=== PATIENT | male | born 1960 | race Caucasian/White ===

== ENCOUNTER 2021-07-14 14:34 | Inpatient (IN) | payer MEDICARE, OTHER ==
[~2021-07-14] VITALS: Ht 165.1 cm; Wt 53.5 kg
--- NOTE | 2021-07-14 14:59 | NUR ---
DR LEON AT BEDSIDE FOR EVAL.
[2021-07-14] MEDS ORDERED: PRAM0.258 GT (15:27)
[2021-07-14] MEDS ORDERED: ACET-868 GT (15:27)
[2021-07-14] MEDS ORDERED: PARO20TA7 GT (15:27)
[2021-07-14] MEDS ORDERED: ALPR0.255 GT (15:27)
[2021-07-14] MEDS ORDERED: GABA-532 GT (15:27)
[2021-07-14] MEDS ORDERED: CRAN3875 GT (15:27)
[2021-07-14] MEDS ORDERED: CLOZ100T32 GT (15:27)
[2021-07-14] MEDS ORDERED: IPRA4AER INH (15:27)
[2021-07-14] MEDS ORDERED: DOCU50LI GT (15:27)
[2021-07-14] MEDS ORDERED: ATOR40TA GT (15:27)
[2021-07-14] MEDS ORDERED: ACET-2605 GT (15:27)
[2021-07-14] MEDS ORDERED: CRAN425C6 GT (15:27)
[2021-07-14] MEDS ORDERED: DOXA4TAB19 GT (15:27)
[2021-07-14] MEDS ORDERED: MAGN400O6 GT (15:27)
[2021-07-14] MEDS ORDERED: HYDR-3973 GT (15:27)
[2021-07-14] MEDS ORDERED: MULT-447 GT (15:27)
[2021-07-14] MEDS ORDERED: BENZ0.5T43 GT (15:27)
[2021-07-14] MEDS ORDERED: CALC500T52 GT (15:27)
[2021-07-14] MEDS ORDERED: ENOX40DI SQ (15:27)
[2021-07-14] MEDS ORDERED: FINA5TAB11 GT (15:27)
[2021-07-14] MEDS ORDERED: CARB1TAB21 GT (15:27)
[2021-07-14] MEDS ORDERED: NITR0.4T48 SL (15:27)
[2021-07-14] MEDS ORDERED: DONE10TA44 GT (15:27)
[2021-07-14] MEDS ORDERED: VANCOMYCIN 1 GM in IV D5W 250 ML IV ONE (15:30)
[2021-07-14] MEDS ORDERED: DEXAMETHASONE SOD PHOSPHATE 4 MG in IV D5W 50 ML IV ONE (15:30)
[2021-07-14] MEDS ORDERED: DEXAMETHASONE SOD PHOSPHATE 4 MG/ML VIAL IV ONE (15:30)
[2021-07-14] MEDS ORDERED: PIPERACILLIN /TAZOBACTAM 3.375 G in IV D5W 50 ML IV ONE (15:30)
[2021-07-14 15:32] LABS: ABG BASE EXCESS -1.8 mmol/L; ABG OXYGEN SATURATION 90.3 % (92.0-98.5); ABG PCO2 34.4 mmHg (35.0-45.0); ABG PH 7.424 (7.350-7.450); ABG PO2 60.7 mmHg (75.0-100.0); AaDO2 617.9 mmHg; COHb 0.2 % (0.5-1.5); MetHb 0.4 % (0.0-1.5); O2Hb 89.8 % (94.0-97.0); SITE, ABG Right Radial; VENT MODE, BG NRB AT 15 LPM
[2021-07-14 15:40] LABS: BASOPHILS % (AUTO) 0.3 % (0.0-2.0); EOSINOPHILS % (AUTO) 0.1 % (0.0-6.0); HEMATOCRIT 42 % (39-51); HEMOGLOBIN 13.8 g/dL (13.5-17.5); LYMPHOCYTES # (AUTO) 1.3 K/uL (0.8-4.8); LYMPHOCYTES % (AUTO) 11.7 % (20.0-44.0); MEAN CORPUSCULAR HGB CONC 33 g/dl (31.0-36.0); MEAN CORPUSCULAR VOLUME 94 fL (80-96); MONOCYTES # (AUTO) 0.8 K/uL (0.1-1.30); NEUTROPHILS # (AUTO) 9.2 K/uL (1.8-8.9); NEUTROPHILS % (AUTO) 80.9 % (43.0-81.0); PLATELET COUNT (AUTO) 223 K/uL (150-450); RED BLOOD CELL COUNT(AUTO) 4.49 MIL/uL (4.5-6.0); WHITE BLOOD COUNT (AUTO) 11.4 K/uL (4.3-11.0)
--- NOTE | 2021-07-14 15:41 | NUR ---
COVID SWABS DONE AND SENT TO LAB
[2021-07-14] MEDS ORDERED: DEXAMETHASONE SOD PHOSPHATE 10 MG/ML VIAL ONE (15:50)
--- NOTE | 2021-07-14 15:59 | NUR ---
PT TO RADIOLOGY FOR HEAD CT SCAN VIA [facility].
[2021-07-14 16:05] LABS: CALCIUM, SERUM 8.6 mg/dL (8.5-10.1); CARBON DIOXIDE 27 mmol/L (21-32); CHLORIDE 104 mmol/L (98-107); CREATININE 0.9 mg/dL (0.6-1.3); GLUCOSE 112 mg/dL (74-106); POTASSIUM 3.9 mmol/L (3.5-5.1); SODIUM SERUM 139 mmol/L (136-145); UREA NITROGEN, BLOOD 10 mg/dL (7-18)
[2021-07-14 16:18] LABS: ALANINE AMINOTRANSFERASE < 6 U/L (12-78); ALKALINE PHOSPHATASE 55 U/L (46-116); ASPARTATE AMINOTRANSFERASE 15 U/L (15-37); BILIRUBIN,DIRECT 0.1 mg/dL (0.0-0.2); BILIRUBIN,TOTAL 0.6 mg/dL (0.2-1.0); TOTAL PROTEIN, SERUM 7.1 g/dL (6.4-8.2)
[2021-07-14 16:54] LABS: BAND % (MANUAL) 30 % (0.0-5.0); LYMPHOCYTES % (MANUAL) 11 % (16-48); MONOCYTES % (MANUAL) 12 % (0-11.0); NEUTROPHILS % (MANUAL) 47 (42-76)
[2021-07-14] MEDS ORDERED: IOHEXOL-350 100 ML VIAL IV ONE (17:17)
[2021-07-14] MEDS ORDERED: IV NS 0.9% 250 ML IV ONE (17:17)
[2021-07-14] MEDS ORDERED: ACETAMINOPHEN 650 MG/SUPP.RECT RC ONE ×2 (17:30→18:29)
--- NOTE | 2021-07-14 17:35 | NUR ---
NURSING SUP GAVE 118-1 TELE.
[2021-07-14 17:36] LABS: BILIRUBIN,URINE NEGATIVE (NEGATIVE); COLOR,URINE YELLOW (YELLOW); LEUKOCYTE ESTERASE ,URINE NEGATIVE (NEGATIVE); NITRITE, URINE NEGATIVE (NEGATIVE); PH,URINE 6.5 (5.0-8.0); PROTEIN,URINE NEGATIVE (NEGATIVE); UGLUCOSE NEGATIVE (NEGATIVE); UROBILINOGEN,URINE 0.2 EU/dL (0.2)
--- NOTE | 2021-07-14 18:15 | NUR ---
REPORT GIVEN TO YASMIN HUBER. AWAITING TRANSFER TO FLOOR.
--- NOTE | 2021-07-14 18:40 | NUR ---
RN NOTE RECEIVED PATIENT FROM ER. WILL CONTINUE TO MONITOR FOR REMAINDER OF SHIFT.
[2021-07-14 18:50] VITALS: BP 103/59
[2021-07-14] MEDS ORDERED: MAGNESIUM HYDROXIDE 30 ML UDC GT PRN (19:30)
[2021-07-14] MEDS ORDERED: ACETAMINOPHEN 325 MG TABLET PO PRN (19:30)
[2021-07-14] MEDS: ALBUTEROL HALF STRENGTH 1.25 MG/3 ML VIAL.NEB NEB SCH (19:30)
[2021-07-14] MEDS ORDERED: HYDROCODONE/APAP 5/325MG TABLET GT PRN (19:30)
[2021-07-14] MEDS ORDERED: Medication Not On Formulary EA (Ipratropium/Albuterol Sulfate (Combivent Respimat 20-100 INH PRN (19:30)
[2021-07-14] MEDS ORDERED: NITROGLYCERIN 0.4 MG/TAB BOTTLE SL PRN (19:30)
[2021-07-14] MEDS: IPRATROPIUM NEB FS 0.5 MG/2.5 ML AMPUL.NEB NEB SCH (19:30)
--- NOTE | 2021-07-14 19:30 | NUR ---
RN NOTES RECEIVED PT FROM AM SHIFT FOR ONGOING ADMISSION. PT IS A/OX1-2; PT ON 15L OF 02 VIA NRB MASK WITH RESPIRATIONS EVEN AND UNLABORED. COMPREHENSIVE PHYSICAL ASSESSMENT AND PATIENT CARE DONE. CALL LIGHT WITHIN REACH, SAFETY MEASURES AND ISOLATION PRECAUTION IN PLACE, WILL CONTINUE MONITOR AND ASSESS THROUGHOUT THE SHIFT. WILL CARRY OUT MD ORDERS ACCORDINGLY. DISTRIBUTION ASSOCIATE MADE AWARE.
[2021-07-14 20:00] VITALS: BP 109/60
[2021-07-14] MEDS ORDERED: ACETAMINOPHEN ES 500 MG TABLET GT PRN ×2 (20:00)
[2021-07-14] MEDS ORDERED: IPRATROPIUM NEB FS 0.5 MG/2.5 ML AMPUL.NEB NEB PRN (20:00)
[2021-07-14] MEDS ORDERED: ALBUTEROL FS 2.5 MG/0.5 ML VIAL.NEB NEB PRN (20:00)
--- NOTE | 2021-07-14 20:45 | NUR ---
BREATHING TX NOT GIVEN DUE TO PENDING COVID TEST RESULT. RN DAT AWARE. SPO2 100% , HR 57, RR 20.
[2021-07-14] MEDS: CARBIDOPA/LEVODOPA 25/100 MG 1 UDTAB GT SCH (21:47)
[2021-07-14] MEDS: DOXAZOSIN MESYLATE (4 MG) 4 MG TABLET GT SCH (21:48)
--- NOTE | 2021-07-14 21:49 | NUR ---
RN NOTES HELD DOXAZOSIN; PT'S BP: 109/60. DRIVERS' CASH CLERK MADE AWARE. MEDICATION RETURNED IN OMNICELL.
[2021-07-14] MEDS: DOCUSATE SODIUM LIQ 100 MG/10 ML UDC GT SCH (21:50)
[2021-07-14] MEDS: ATORVASTATIN 40 MG TABLET GT SCH (21:50)
[2021-07-14] MEDS: CLOZAPINE 100 MG TABLET GT SCH (21:50)
[2021-07-14] MEDS: PRAMIPEXOLE DI-HCL 0.25 MG TABLET GT SCH (21:50)
[2021-07-14] MEDS: GABAPENTIN 100 MG CAPSULE GT SCH (21:51)
[2021-07-14] MEDS: CALCIUM CARBONATE (1250) 500 MG TABLET GT SCH (21:51)
[2021-07-14] MEDS: FINASTERIDE (5 MG) 5 MG TABLET GT SCH (21:51)
[2021-07-14] MEDS: ZOSYN IVPB 3.375 G in IV D5W 50ml IV SCH (21:52)
[2021-07-15] VITALS: BP 109/61
--- NOTE | 2021-07-15 | NUR ---
RN NOTES PATIENT REMAINED TO BE IN NO SIGNS OF ACUTE RESPIRATORY DISTRESS , VITAL SIGNS WNL AT THIS TIME. WILL CONTINUE TO MONITOR AND REASSESS FOR ANY CHANGES THROUGHOUT THE SHIFT.
[2021-07-15] MEDS: ALBUTEROL HALF STRENGTH 1.25 MG/3 ML VIAL.NEB NEB SCH ×4 (01:30→19:30)
[2021-07-15] MEDS: IPRATROPIUM NEB FS 0.5 MG/2.5 ML AMPUL.NEB NEB SCH ×4 (01:30→19:30)
[2021-07-15] MEDS: ZOSYN IVPB 3.375 G in IV D5W 50ml IV SCH ×4 (03:21→22:34)
[2021-07-15 04:00] VITALS: BP 136/58
--- NOTE | 2021-07-15 04:00 | NUR ---
RN NOTES NO NOTED CHANGES IN PATIENT CONDITION AT THIS TIME; PATIENT VITALS STABLE, NO SIGNS OF ACUTE RESPIRATORY DISTRESS. AM PATIENT CARE RENDERED. DRIVER'S LICENSE EXAMINER MADE AWARE. WILL CONTINUE TO MONITOR AND REASSESS FOR ANY CHANGES THROUGHOUT THE SHIFT.
[2021-07-15] MEDS: VANCOMYCIN 1 GM in IV D5W 250 ML IV SCH ×2 (04:03→16:34)
[2021-07-15 06:41] LABS: CALCIUM, SERUM 9.1 mg/dL (8.5-10.1); CREATININE 0.8 mg/dL (0.6-1.3); POTASSIUM 3.7 mmol/L (3.5-5.1)
[2021-07-15 06:49] LABS: HEMATOCRIT 42 % (39-51); HEMOGLOBIN 14.1 g/dL (13.5-17.5); LYMPHOCYTES # (AUTO) 0.9 K/uL (0.8-4.8); MEAN CORPUSCULAR HGB CONC 33 g/dl (31.0-36.0); MEAN CORPUSCULAR VOLUME 93 fL (80-96); MONOCYTES # (AUTO) 0.6 K/uL (0.1-1.30); MONOCYTES % (AUTO) 5.4 % (2.0-12.0); NEUTROPHILS % (AUTO) 86.6 % (43.0-81.0); PLATELET COUNT (AUTO) 230 K/uL (150-450); RED BLOOD CELL COUNT(AUTO) 4.54 MIL/uL (4.5-6.0); WHITE BLOOD COUNT (AUTO) 11.6 K/uL (4.3-11.0)
--- NOTE | 2021-07-15 06:54 | NUR ---
RN CLOSING NOTE: PATIENT REMAINS IN ROOM IN NO SIGNS OF RESPIRATORY DISTRESS, PATIENT STILL ON15L OF 02 VIA NRB MASKS ;TOLERATING WELL SATURATING @ >95% SP02. SAFETY MEASURES IMPLEMENTED, BED IN LOWEST POSITION, LOCKED, SIDE RAILS UP, CALL LIGHT WITHIN REACH. ALL NEEDS AND ORDERS ADDRESSED DURING THE SHIFT. IV ACCESS MAINTAINED INTACT, SECURED AND FLUSHING WELL. ALL DUE MEDS GIVEN ORDERED & SCHEDULED ; PATIENT TOLERATED WELL. PATIENT KEPT CLEAN AND COMFORTABLE WITHIN THE SHIFT. PATIENT ENDORSED TO INCOMING SHIFT RN WITH STABLE VITAL SIGN AND FOR CONTINUITY OF CARE. Addendum: 07/15/21 at 0656 by SIMIN HELM RN ALSO TO ENDORSE TO AM SHIFT RN TO FOLLOW UP WITH APPROPRIATE DIET FOR PT; PER [facility] RECORDS PT IS ON MECHANICAL SOFT DIET HONEY CONSISTENCY. ALSO ABOUT CODE STATUS. THERES A CODE STATUS SHEET FOR DNR; FOLLOW UP WITH MD TO PLACE CODE STATUS.
[2021-07-15 08:00] VITALS: BP 110/88
[2021-07-15] MEDS: ALPRAZOLAM 0.25 MG TABLET GT SCH ×2 (08:17→17:22)
[2021-07-15] MEDS: CARBIDOPA/LEVODOPA 25/100 MG 1 UDTAB GT SCH ×4 (08:18→22:34)
[2021-07-15] MEDS: MULTIVIT W/MINERALS 1 TAB TABLET GT SCH (08:18)
[2021-07-15] MEDS: ENOXAPARIN SODIUM 40 MG/0.4 ML DISP.SYRIN SQ SCH (08:19)
[2021-07-15] MEDS: BENZTROPINE MESYLATE (1 MG) 1 MG TABLET GT SCH ×2 (08:20→16:34)
--- NOTE | 2021-07-15 09:13 | NUR ---
MS RN NOTE PATIENT ON MONITOR. HR 79 RR20. PATIENT ON SOFT DIET. FED BY NURSING STAFF. CONSULT GASOLINE CATALYST OPERATOR TO TITRATE TO SIMPLE MASK TO 6L. PT HAVE RIGHT AC IV. HEP LOCK AND FLUSH WELL. PT HAS BED ON LOWEST POSITION AND LOCK. CALL LIGHT WITHIN REACH. HEAD OF THE BED UP. CURRENTLY ON SIMPLE MASK ON 10L. WILL CONTINUE TO MONITOR. CALL LIGHT WITHIN REACH.
--- NOTE | 2021-07-15 09:29 | NUR ---
MS HUBER NOTE BLOOD TRANSFUSION COMPLETED. PATIENT SHOWS NO SIGN OF TRANSFUSION REACTION. Addendum: 07/15/21 at 1228 by RUI VILLALOBOS RN wrong chart, wring entry
[2021-07-15 12:00] VITALS: BP 99/56
--- NOTE | 2021-07-15 12:30 | NUR ---
DISEASE INTERVENTION SPECIALIST NOTE PATIENT HAVING LUNCH , ABLE TO EAT 50% FED BY RN , KEEP CLEAN DRY , ALL NEEDS ATTENDED ,WILL MONITOR
--- NOTE | 2021-07-15 14:30 | NUR ---
BINDER FOLDER OPERATOR NOTE ALESIA RN CCTV TECHNICIAN FOR DR. PARSONS SEEN PATIENT. PATIENT STATUS UPDATED DNR TO DNI. WILL FOLLOW UP.
--- NOTE | 2021-07-15 15:33 | NUR ---
CAUSE ANALYST NOTE SATURATION 99%, PLACED ON NC 6 L AT THIS TIME ,WILL MONITOR
[2021-07-15 16:00] VITALS: BP 125/66
[2021-07-15] MEDS: DONEPEZIL 5 MG TABLET GT SCH (17:22)
[2021-07-15] MEDS: PAROXETINE HCL 20 MG TABLET GT SCH (17:23)
[2021-07-15] MEDS ORDERED: Medication Not On Formulary EA (Cranberry Extract (Cranberry) 425 MG) GT SCH (18:00)
[2021-07-15] MEDS ORDERED: Medication Not On Formulary EA (Cran/Vitc/Mannose/Inulin/Brom (Uti-Stat Liquid) 3,875 MG GT SCH (18:00)
--- NOTE | 2021-07-15 18:33 | NUR ---
TELE NURSE NOTE. PATIENT WAS SWITCH FROM SIMPLE FACE MASK TO NASAL CANULA ON 4L OF OXYGEN. SATURATING AT 97%. PATIENT CLEANED BY COOK HELPER PASTRY. DINNER WAS FED BY COOK HELPER PASTRY. PROVIDE COMFORT MEASURE. BE WAS PUT TO THE LOWEST POSITION WITH HOB ELEVATED. ALL SIDE RAIL UP. WILL CONTINUE TO MONITOR AND ENDORSE TO ON COMING NURSE.
[2021-07-15 20:00] VITALS: BP 109/56
[2021-07-15] MEDS: DOXAZOSIN MESYLATE (4 MG) 4 MG TABLET GT SCH (22:00)
[2021-07-15] MEDS: PRAMIPEXOLE DI-HCL 0.25 MG TABLET GT SCH (22:26)
[2021-07-15] MEDS: GABAPENTIN 100 MG CAPSULE GT SCH (22:26)
[2021-07-15] MEDS: CALCIUM CARBONATE (1250) 500 MG TABLET GT SCH (22:29)
[2021-07-15] MEDS: FINASTERIDE (5 MG) 5 MG TABLET GT SCH (22:29)
[2021-07-15] MEDS: ATORVASTATIN 40 MG TABLET GT SCH (22:29)
[2021-07-15] MEDS: CLOZAPINE 100 MG TABLET GT SCH (22:30)
[2021-07-15] MEDS: DOCUSATE SODIUM LIQ 100 MG/10 ML UDC GT SCH (22:30)
[2021-07-16] VITALS: BP 108/57
[2021-07-16] MEDS: IPRATROPIUM NEB FS 0.5 MG/2.5 ML AMPUL.NEB NEB SCH ×4 (01:14→19:56)
[2021-07-16] MEDS: ALBUTEROL HALF STRENGTH 1.25 MG/3 ML VIAL.NEB NEB SCH ×4 (01:14→19:56)
[2021-07-16] MEDS: ZOSYN IVPB 3.375 G in IV D5W 50ml IV SCH ×4 (04:16→21:37)
[2021-07-16] MEDS: VANCOMYCIN 1 GM in IV D5W 250 ML IV SCH ×2 (04:17→16:53)
[2021-07-16 04:27] LABS: CALCIUM, SERUM 8.7 mg/dL (8.5-10.1); CREATININE 0.7 mg/dL (0.6-1.3); POTASSIUM 3.8 mmol/L (3.5-5.1)
--- NOTE | 2021-07-16 06:42 | NUR ---
RN notes Alert and oriented with episodes of forgetfulness. In bed resting comfortably. Noted with delayed speech. Very cooperative. On 4lpm O2 via nasal cannula tolerating well. No complaint of pain or discomfort. Kept clean and comfortable. Will endorse to next shift for continuity of care.
--- NOTE | 2021-07-16 07:10 | NUR ---
RN NOTES RECEIVED PT ON BED , A/Ox1, ON 4 L O2 N/C , NO SOB NOTED, ON TELE SR HR IN 70S' , R AC AND LEFT WRIST IV SITES CLEAN, DRY AND INTACT, SR UP x3, CALL LIGHT WITHIN EASY REACH , BED LOCKED AND IN LOWEST POSITION, CONTINUE TO MONITOR
[2021-07-16 08:00] VITALS: BP 123/58
[2021-07-16] MEDS: MULTIVIT W/MINERALS 1 TAB TABLET GT SCH (08:26)
[2021-07-16] MEDS: ALPRAZOLAM 0.25 MG TABLET GT SCH ×2 (08:26→17:02)
[2021-07-16] MEDS: CARBIDOPA/LEVODOPA 25/100 MG 1 UDTAB GT SCH ×4 (08:27→21:07)
[2021-07-16] MEDS: BENZTROPINE MESYLATE (1 MG) 1 MG TABLET GT SCH ×2 (08:27→16:49)
[2021-07-16] MEDS: ENOXAPARIN SODIUM 40 MG/0.4 ML DISP.SYRIN SQ SCH (08:28)
[2021-07-16 12:07] LABS: BASOPHILS # (AUTO) 0.1 K/uL (0.0-0.2); BASOPHILS % (AUTO) 0.5 % (0.0-2.0); EOSINOPHILS % (AUTO) 0.4 % (0.0-6.0); HEMATOCRIT 39 % (39-51); HEMOGLOBIN 12.7 g/dL (13.5-17.5); LYMPHOCYTES # (AUTO) 2.1 K/uL (0.8-4.8); LYMPHOCYTES % (AUTO) 16.9 % (20.0-44.0); MEAN CORPUSCULAR HGB CONC 32 g/dl (31.0-36.0); MEAN CORPUSCULAR VOLUME 95 fL (80-96); MONOCYTES # (AUTO) 0.9 K/uL (0.1-1.30); MONOCYTES % (AUTO) 7.1 % (2.0-12.0); NEUTROPHILS # (AUTO) 9.4 K/uL (1.8-8.9); NEUTROPHILS % (AUTO) 75.1 % (43.0-81.0); PLATELET COUNT (AUTO) 263 K/uL (150-450); RED BLOOD CELL COUNT(AUTO) 4.13 MIL/uL (4.5-6.0); WHITE BLOOD COUNT (AUTO) 12.5 K/uL (4.3-11.0)
[2021-07-16 12:52] LABS: BAND % (MANUAL) 5 % (0.0-5.0); LYMPHOCYTES % (MANUAL) 18 % (16-48); MONOCYTES % (MANUAL) 8 % (0-11.0); NEUTROPHILS % (MANUAL) 69 (42-76)
[2021-07-16 16:00] VITALS: BP 128/62
[2021-07-16] MEDS: DONEPEZIL 5 MG TABLET GT SCH (17:02)
[2021-07-16] MEDS: PAROXETINE HCL 20 MG TABLET GT SCH (17:04)
--- NOTE | 2021-07-16 18:00 | NUR ---
RN NOTES NO SIGNIFICANT CHANGES NOTED ON THIS SHIFT, PT IS ON 4L O2 N/C , O2 SAT WNL , SR UP x3, CALL LIGHT WITHIN EASY REACH, WILL ENDORSE TO RACE ENGINE BUILDER NURSE FOR CONTINUITY OF CARE.
--- NOTE | 2021-07-16 19:30 | NUR ---
MS RN OPENING PATIENT IN BED WITH EYES CLOSED, EASY TO AROUSE. HAS NO APPARENT DISTRESS TOLERATING 4LPM OF OXYGEN VIA NC. NO C/O PAIN. NO FLUIDS RUNNING AT THIS TIME. SAFETY IN PLACE. WILL CONTINUE TO MONITOR. .
[2021-07-16 20:00] VITALS: BP 132/73
[2021-07-16] MEDS: CLOZAPINE 100 MG TABLET GT SCH (21:41)
[2021-07-16] MEDS: FINASTERIDE (5 MG) 5 MG TABLET GT SCH (21:41)
[2021-07-16] MEDS: PRAMIPEXOLE DI-HCL 0.25 MG TABLET GT SCH (21:41)
[2021-07-16] MEDS: CALCIUM CARBONATE (1250) 500 MG TABLET GT SCH (21:42)
[2021-07-16] MEDS: ATORVASTATIN 40 MG TABLET GT SCH (21:42)
[2021-07-16] MEDS: DOXAZOSIN MESYLATE (4 MG) 4 MG TABLET GT SCH (21:44)
[2021-07-16] MEDS: GABAPENTIN 100 MG CAPSULE GT SCH (21:46)
[2021-07-16] MEDS: DOCUSATE SODIUM LIQ 100 MG/10 ML UDC GT SCH (21:48)
[2021-07-17] MEDS: IPRATROPIUM NEB FS 0.5 MG/2.5 ML AMPUL.NEB NEB SCH ×4 (01:55→20:00)
[2021-07-17] MEDS: ALBUTEROL HALF STRENGTH 1.25 MG/3 ML VIAL.NEB NEB SCH ×4 (01:55→20:00)
[2021-07-17] MEDS: ZOSYN IVPB 3.375 G in IV D5W 50ml IV SCH ×4 (03:01→21:19)
[2021-07-17] MEDS: VANCOMYCIN 1 GM in IV D5W 250 ML IV SCH ×2 (04:00→17:17)
--- NOTE | 2021-07-17 04:00 | NUR ---
ms rn note report given to michael.
--- NOTE | 2021-07-17 04:44 | NUR ---
ms rn note patient transferred upstairs 3w at this time in stable condition.
--- NOTE | 2021-07-17 04:55 | NUR ---
MS RN NOTES RECEIVED PATIENT FROM [facility] VIA GURNEY, AWAKE AND A/O X1. ON O2 AT 3LPM VIA NASAL CANNULA, TOLERATING WELL WITH NO SIGNS OF SOB NOTED. NOT IN DISTRESS. VITAL SIGNS TAKEN AND RECORDED. WITH NO PAIN OR DISCOMFORT AT THIS TIME. MADE COMFORTABLE ON BED. SAFETY MEASURES IN PLACED. CALL LIGHT WITHIN REACH. BED ON LOWEST AND LOCKED POSITION. SIDE RAILS UP X2. WILL CONTINUE TO MONITOR.
[2021-07-17 06:00] VITALS: BP 125/71
--- NOTE | 2021-07-17 06:42 | NUR ---
MS RN CLOSING NOTES PATIENT RESTING ON BED, AWAKE AND A/O X1. ON O2 AT 3LPM VIA NASAL CANNULA, TOLERATING WELL WITH NO SIGNS OF SOB NOTED. NOT IN DISTRESS. VITAL SIGNS TAKEN AND RECORDED. WITH NO PAIN OR DISCOMFORT AT THIS TIME. SAFETY MEASURES IN PLACED. CALL LIGHT WITHIN REACH. BED ON LOWEST AND LOCKED POSITION. SIDE RAILS UP X2. WILL ENDORSE TO NEXT SHIFT.
[2021-07-17 07:56] LABS: CREATININE 0.7 mg/dL (0.6-1.3); POTASSIUM 3.8 mmol/L (3.5-5.1)
[2021-07-17 08:00] VITALS: BP 124/67
--- NOTE | 2021-07-17 08:00 | NUR ---
RN NOTE NURSE SWALLOW EVAL DONE. PT ON SOFT DIET, MD AGREEABLE FOR DIET. WILL CONTINUE TO MONITOR.
--- NOTE | 2021-07-17 08:00 | NUR ---
RN OPENING NOTE PT AWAKE IN BED RESTING. ON 3L NC WITH SOB AND COUGHING PRESENT. NO RESPIRATORY DISTRESS. A/O X1-2 WITH NO S/S OF PAIN OR NAUSEA. NO CHIEF CLERK PRESENT. NO EDEMA PRESENT. BEDBOUND WITH DIAPER PRESENT. SKIN IS INTACT. IV PRESENT ON R AC 18 G AND L WRIST 20G. BOTH FLUSHING WELL AND SALINE LOCKED. LABS AND ORDERS REVIEWED. SAFETY MEASURES IN PLACE. SIDE RAILS RAISED. BED LOWERED. CALL LIGHT WITHIN REACH. WILL CONTINUE TO MONITOR.
[2021-07-17] MEDS: BENZTROPINE MESYLATE (1 MG) 1 MG TABLET GT SCH ×2 (08:21→17:16)
[2021-07-17] MEDS: ALPRAZOLAM 0.25 MG TABLET GT SCH ×2 (08:21→17:16)
[2021-07-17] MEDS: MULTIVIT W/MINERALS 1 TAB TABLET GT SCH (08:21)
[2021-07-17] MEDS: CARBIDOPA/LEVODOPA 25/100 MG 1 UDTAB GT SCH ×4 (08:21→21:06)
[2021-07-17] MEDS: ENOXAPARIN SODIUM 40 MG/0.4 ML DISP.SYRIN SQ SCH (08:27)
[2021-07-17] MEDS: ENSURE ENLIVE 237 ML LIQUID (VANILLA) PO SCH ×2 (13:45→17:16)
[2021-07-17 16:04] VITALS: BP 112/75
[2021-07-17] MEDS: PAROXETINE HCL 20 MG TABLET GT SCH (17:16)
[2021-07-17] MEDS: DONEPEZIL 5 MG TABLET GT SCH (17:16)
--- NOTE | 2021-07-17 18:58 | NUR ---
RN CLOSING NOTE PT AWAKE IN BED RESTING. ON 3L NC WITH SOB AND COUGHING PRESENT. NO RESPIRATORY DISTRESS. A/O X1-2 WITH NO S/S OF PAIN OR NAUSEA. MUMBLES TO SELF AT TIMES. NO MAGNETIC PROSPECTING SUPERVISOR PRESENT. NO EDEMA PRESENT. BEDBOUND WITH DIAPER PRESENT. SKIN IS INTACT. IV PRESENT ON R AC 18 G AND L WRIST 20G. BOTH FLUSHING WELL AND SALINE LOCKED. ROUTINE MEDS GIVEN. LABS AND ORDERS REVIEWED. SAFETY MEASURES IN PLACE. SIDE RAILS RAISED. BED LOWERED. CALL LIGHT WITHIN REACH. REPORT TO BE GIVEN TO NIGHT NURSE FOR HARPER.
--- NOTE | 2021-07-17 19:18 | NUR ---
RN OPENING NOTE PT AWAKE, A/OX1, VERBALIZES HIS NAME ONLY, DOES NOT KNOW PLACE/TIME, ANSWERS YES/NO QUESTIONS. NOTED HE MUMBLES TO HIMSELF. REORIENTATION PROVIDED. DENIES ANY PAIN OR DISCOMFORT. ON O2 @3LPM VIA NC. O2 SAT 97%. IV SITES ON R-AC AND L-WRIST BOTH INTACT, PATENT, AND FLUSHES WELL. PT IN NO ACUTE DISTRESS. SAFETY MEASURES IN PLACE, BED IN LOWEST LOCKED POSITION, S/R UP X2, CALL LIGHT WITHIN EASY REACH. WILL CONTINUE TO MONITOR.
[2021-07-17 20:23] VITALS: BP 121/82
[2021-07-17] MEDS: PRAMIPEXOLE DI-HCL 0.25 MG TABLET GT SCH (21:06)
[2021-07-17] MEDS: CLOZAPINE 100 MG TABLET GT SCH (21:06)
[2021-07-17] MEDS: CALCIUM CARBONATE (1250) 500 MG TABLET GT SCH (21:07)
[2021-07-17] MEDS: GABAPENTIN 100 MG CAPSULE GT SCH (21:07)
[2021-07-17] MEDS: FINASTERIDE (5 MG) 5 MG TABLET GT SCH (21:07)
[2021-07-17] MEDS: ATORVASTATIN 40 MG TABLET GT SCH (21:07)
[2021-07-17] MEDS: DOCUSATE SODIUM LIQ 100 MG/10 ML UDC GT SCH (21:07)
[2021-07-17] MEDS: DOXAZOSIN MESYLATE (4 MG) 4 MG TABLET GT SCH (21:07)
[2021-07-18] MEDS: ALBUTEROL HALF STRENGTH 1.25 MG/3 ML VIAL.NEB NEB SCH ×4 (02:05→20:21)
[2021-07-18] MEDS: IPRATROPIUM NEB FS 0.5 MG/2.5 ML AMPUL.NEB NEB SCH ×4 (02:05→20:21)
[2021-07-18] MEDS: ZOSYN IVPB 3.375 G in IV D5W 50ml IV SCH ×4 (03:34→21:15)
[2021-07-18] MEDS: VANCOMYCIN 1 GM in IV D5W 250 ML IV SCH ×2 (04:23→17:32)
[2021-07-18 06:46] LABS: CALCIUM, SERUM 8.7 mg/dL (8.5-10.1); CREATININE 0.8 mg/dL (0.6-1.3); POTASSIUM 4.2 mmol/L (3.5-5.1)
--- NOTE | 2021-07-18 07:11 | NUR ---
RN CLOSING NOTES PT RESTING IN BED, AROUSABLE TO STIMULI. A/OX1 TO NAME ONLY. VERBALLY RESPONSIVE BUT WITH CONFUSION. REORIENTATION PROVIDED. ON O2 @3LPM VIA NC. O2 SAT 98%. NO SOB NOTED. PT SLEPT WELL DURING THE NIGHT. NO ACUTE DISTRESS NOTED. SAFETY MEASURES MAINTAINED, BED IN LOWEST LOCKED POSITION, S/R UP X2, CALL LIGHT WITHIN REACH. ENDORSED TO NEXT SHIFT NURSE.
[2021-07-18 07:58] LABS: BASOPHILS % (AUTO) 0.5 % (0.0-2.0); EOSINOPHILS % (AUTO) 4.5 % (0.0-6.0); HEMATOCRIT 40 % (39-51); LYMPHOCYTES # (AUTO) 1.8 K/uL (0.8-4.8); LYMPHOCYTES % (AUTO) 22.5 % (20.0-44.0); MEAN CORPUSCULAR HGB CONC 32 g/dl (31.0-36.0); MEAN CORPUSCULAR VOLUME 94 fL (80-96); MONOCYTES # (AUTO) 0.7 K/uL (0.1-1.30); MONOCYTES % (AUTO) 8.7 % (2.0-12.0); NEUTROPHILS # (AUTO) 5.2 K/uL (1.8-8.9); NEUTROPHILS % (AUTO) 63.8 % (43.0-81.0); PLATELET COUNT (AUTO) 261 K/uL (150-450); RED BLOOD CELL COUNT(AUTO) 4.24 MIL/uL (4.5-6.0); WHITE BLOOD COUNT (AUTO) 8.2 K/uL (4.3-11.0)
[2021-07-18 08:00] VITALS: BP 97/64
--- NOTE | 2021-07-18 08:00 | NUR ---
RN OPENING NOTE PT AWAKE IN BED RESTING. ON 3L NC WITH SOB AND COUGHING PRESENT. NO RESPIRATORY DISTRESS. A/O X1-2 WITH NO S/S OF PAIN OR NAUSEA. NO RETOUCHER PHOTOENGRAVING PRESENT. NO EDEMA PRESENT. BEDBOUND WITH DIAPER PRESENT. SKIN IS INTACT. IV PRESENT ON R AC 18 G AND L WRIST 20G. BOTH FLUSHING WELL AND SALINE LOCKED. LABS AND ORDERS REVIEWED. SAFETY MEASURES IN PLACE. SIDE RAILS RAISED. BED LOWERED. CALL LIGHT WITHIN REACH. WILL CONTINUE TO MONITOR.
[2021-07-18] MEDS: MULTIVIT W/MINERALS 1 TAB TABLET GT SCH (08:30)
[2021-07-18] MEDS: CARBIDOPA/LEVODOPA 25/100 MG 1 UDTAB GT SCH ×4 (08:30→20:58)
[2021-07-18] MEDS: ALPRAZOLAM 0.25 MG TABLET GT SCH ×2 (08:31→17:31)
[2021-07-18] MEDS: BENZTROPINE MESYLATE (1 MG) 1 MG TABLET GT SCH ×2 (08:31→17:31)
[2021-07-18] MEDS: ENOXAPARIN SODIUM 40 MG/0.4 ML DISP.SYRIN SQ SCH (08:34)
[2021-07-18] MEDS: ENSURE ENLIVE 237 ML LIQUID (VANILLA) PO SCH ×3 (08:37→17:31)
[2021-07-18 16:00] VITALS: BP 102/64
[2021-07-18] MEDS: PAROXETINE HCL 20 MG TABLET GT SCH (17:31)
[2021-07-18] MEDS: DONEPEZIL 5 MG TABLET GT SCH (17:31)
--- NOTE | 2021-07-18 18:39 | NUR ---
RN CLOSING NOTE PT AWAKE IN BED RESTING. ON 3L NC WITH SOB AND COUGHING PRESENT. NO RESPIRATORY DISTRESS. A/O X1-2 WITH NO S/S OF PAIN OR NAUSEA. MUMBLES TO SELF AT TIMES. NO FISHER MUSSEL PRESENT. NO EDEMA PRESENT. BEDBOUND WITH DIAPER PRESENT. SKIN IS INTACT. IV PRESENT ON R AC 18 G AND L WRIST 20G. BOTH FLUSHING WELL AND SALINE LOCKED. ROUTINE MEDS GIVEN. LABS AND ORDERS REVIEWED. SAFETY MEASURES IN PLACE. SIDE RAILS RAISED. BED LOWERED. CALL LIGHT WITHIN REACH. REPORT TO BE GIVEN TO NIGHT NURSE FOR HARPER.
--- NOTE | 2021-07-18 19:10 | NUR ---
RN OPENING NOTES RECEIVED PT RESTING IN BED, A/OX1 TO NAME ONLY, NOTICED UNINTELLIGIBLE MUMBLING, OPENS EYES WHEN NAME IS CALLED. REORIENTATION PROVIDED. ON O2 @3LPM VIA NC, NO SOB NOTED, RESPIRATIONS EVEN AND UNLABORED. IV SITES: R-AC AND L-WRIST BOTH INTACT, PATENT AND FLUSHES WELL. HOB ELEVATED 30-45 DEGREES. PT IN NO ACUTE DISTRESS. SAFETY MEASURES IN PLACE, BED IN LOWEST LOCKED POSITION, S/R UP X2, CALL LIGHT WITHIN REACH. WILL CONTINUE TO MONITOR.
[2021-07-18 20:00] VITALS: BP 116/68
[2021-07-18] MEDS: PRAMIPEXOLE DI-HCL 0.25 MG TABLET GT SCH (21:02)
[2021-07-18] MEDS: DOCUSATE SODIUM LIQ 100 MG/10 ML UDC GT SCH (21:02)
[2021-07-18] MEDS: ATORVASTATIN 40 MG TABLET GT SCH (21:02)
[2021-07-18] MEDS: DOXAZOSIN MESYLATE (4 MG) 4 MG TABLET GT SCH (21:02)
[2021-07-18] MEDS: CALCIUM CARBONATE (1250) 500 MG TABLET GT SCH (21:02)
[2021-07-18] MEDS: FINASTERIDE (5 MG) 5 MG TABLET GT SCH (21:02)
[2021-07-18] MEDS: GABAPENTIN 100 MG CAPSULE GT SCH (21:03)
[2021-07-18] MEDS: CLOZAPINE 100 MG TABLET GT SCH (21:03)
--- NOTE | 2021-07-18 23:00 | NUR ---
RN NOTE LAB RESULT FOR VANCOMYCIN TROUGH 67. ACCDG TO LAB IT WAS DRAWN AT 1820 TODAY. CALLED TO OUTSIDE PHARM, SPOKE WITH ROMAN, AND RECOMMENDED TO RE-DRAW 1 HR BEFORE NEXT DOSE. AWARE. VANCO TROUGH TO BE RE-DRAWN AT 0400.
[2021-07-19] MEDS: IPRATROPIUM NEB FS 0.5 MG/2.5 ML AMPUL.NEB NEB SCH ×4 (00:38→20:16)
[2021-07-19] MEDS: ALBUTEROL HALF STRENGTH 1.25 MG/3 ML VIAL.NEB NEB SCH ×4 (00:38→20:16)
--- NOTE | 2021-07-19 04:20 | NUR ---
RN NOTE CALLED LAB TO F/U - MAGGIE TROUGH ALREADY DRAWN; AWAITING RESULTS
[2021-07-19] MEDS: ZOSYN IVPB 3.375 G in IV D5W 50ml IV SCH ×4 (04:23→21:53)
[2021-07-19 04:38] LABS: CALCIUM, SERUM 8.9 mg/dL (8.5-10.1); CREATININE 0.8 mg/dL (0.6-1.3); POTASSIUM 4.7 mmol/L (3.5-5.1)
--- NOTE | 2021-07-19 07:15 | NUR ---
RN NOTES PT RESTING IN BED, AWAKE, A/OX1, OPENS EYES WHEN NAME IS CALLED AND VERBALLY RESPONSIVE, BUT CONFUSED, MUMBLES TO SELF. NO S/S OF PAIN OR DISCOMFORT NOTED. ON O2 @3LPM VIA NC. RESP EVEN AND UNLABORED. GT INTACT/PATENT/FLUSHES WELL. PT ABLE TO TOLERATE PO WELL WITH NO S/S OF ASPIRATION NOTED. NO ACUTE DISTRESS DURING THE SHIFT. ENDORSED TO NEXT SHIFT NURSE.
--- NOTE | 2021-07-19 07:30 | NUR ---
MS RN OPENING NOTES RECEIVED PT RESTING IN BED, AWAKE AND A/OX1, OPENS EYES AND VERBALLY RESPONSIVE, BUT CONFUSED, MUMBLES TO SELF. WITH NO COMPLAINTS OF PAIN OR DISCOMFORT NOTED. ON O2 @ 3LPM VIA NC. BREATHING EVENLY AND UNLABORED. WITH G-TUBE, INTACT, PATENT AND FLUSHES WELL. WITH IV ACCESS AT RIGHT AC G18 AND LEFT WRIST G20, BOTH ARE SALINE LOCKED, INTACT AND FLUSHES WELL. WILL CONTINUE TO MONITOR.
[2021-07-19 08:14] VITALS: BP 113/70
[2021-07-19] MEDS: ALPRAZOLAM 0.25 MG TABLET GT SCH ×2 (08:28→18:31)
[2021-07-19] MEDS: MULTIVIT W/MINERALS 1 TAB TABLET GT SCH (08:28)
[2021-07-19] MEDS: BENZTROPINE MESYLATE (1 MG) 1 MG TABLET GT SCH ×2 (08:29→16:08)
[2021-07-19] MEDS: ENOXAPARIN SODIUM 40 MG/0.4 ML DISP.SYRIN SQ SCH (08:39)
[2021-07-19] MEDS: ENSURE ENLIVE 237 ML LIQUID (VANILLA) PO SCH ×3 (08:41→18:30)
[2021-07-19] MEDS: CARBIDOPA/LEVODOPA 25/100 MG 1 UDTAB GT SCH ×4 (08:46→20:13)
[2021-07-19 16:11] VITALS: BP 141/71
[2021-07-19] MEDS: PAROXETINE HCL 20 MG TABLET GT SCH (18:31)
[2021-07-19] MEDS: DONEPEZIL 5 MG TABLET GT SCH (18:31)
--- NOTE | 2021-07-19 19:03 | NUR ---
MS RN CLOSING NOTES PT RESTING IN BED, AWAKE AND A/OX1, OPENS EYES AND VERBALLY RESPONSIVE, BUT CONFUSED, MUMBLES TO SELF. WITH NO COMPLAINTS OF PAIN OR DISCOMFORT NOTED. ON O2 @ 3LPM VIA NC. BREATHING EVENLY AND UNLABORED. WITH G-TUBE, INTACT, PATENT AND FLUSHES WELL. WITH IV ACCESS AT RIGHT AC G20, SALINE LOCKED, INTACT AND FLUSHES WELL. WILL CONTINUE TO ENDORSE TO NEXT SHIFT FOR HARPER.
[2021-07-19 20:00] VITALS: BP 137/67
--- NOTE | 2021-07-19 20:00 | NUR ---
MS RN OPENING NOTE RECEIVED PT AWAKE IN BED. A/O X1 TO NAME ONLY WITH UNINTELLIGIBLE MUMBLING. PT OPENS EYES WHEN NAME IS CALLED. FREQUENT REORIENTATION PROVIDED. PT IS ON 3LPM O2 VIA NC SATURATING AT 98%. NO SOB OR S/S OF RESPIRATORY DISTRESS NOTED. NO S/O OF PAIN SUCH FACIAL GRIMACING NOTED. IV ACCESS IN RAC #20 SALINE-LOCKED, INTACT AND PATENT. SAFETY PRECAUTIONS MAINTAINED. BED IN LOWEST LOCKED POSITION, HOB ELEVATED, SIDE RAILS UP X2. CALL LIGHT AND TABLE WITHIN REACH. WILL CONTINUE WITH PLAN OF CARE.
[2021-07-19] MEDS: VANCOMYCIN 0.75 GM in IV D5W 250 ML IV SCH (21:00)
[2021-07-19] MEDS: DOXAZOSIN MESYLATE (4 MG) 4 MG TABLET GT SCH (21:10)
[2021-07-19] MEDS: DOCUSATE SODIUM LIQ 100 MG/10 ML UDC GT SCH (21:12)
[2021-07-19] MEDS: PRAMIPEXOLE DI-HCL 0.25 MG TABLET GT SCH (21:12)
[2021-07-19] MEDS: ATORVASTATIN 40 MG TABLET GT SCH (21:12)
[2021-07-19] MEDS: GABAPENTIN 100 MG CAPSULE GT SCH (21:12)
[2021-07-19] MEDS: CALCIUM CARBONATE (1250) 500 MG TABLET GT SCH (21:13)
[2021-07-19] MEDS: FINASTERIDE (5 MG) 5 MG TABLET GT SCH (21:13)
[2021-07-19] MEDS: CLOZAPINE 100 MG TABLET GT SCH (21:23)
[2021-07-20] MEDS: IPRATROPIUM NEB FS 0.5 MG/2.5 ML AMPUL.NEB NEB SCH ×4 (01:32→20:11)
[2021-07-20] MEDS: ALBUTEROL HALF STRENGTH 1.25 MG/3 ML VIAL.NEB NEB SCH ×4 (01:32→20:11)
[2021-07-20] MEDS: ZOSYN IVPB 3.375 G in IV D5W 50ml IV SCH ×4 (03:22→21:01)
--- NOTE | 2021-07-20 06:09 | NUR ---
MS RN CLOSING NOTE PT IS IN BED WITH EYES CLOSED AND OPENS EYES WHEN NAME IS CALLED. A/O X1 TO NAME ONLY WITH UNINTELLIGIBLE MUMBLING. FREQUENT REORIENTATION PROVIDED. PT IS ON 3LPM O2 VIA NC SATURATING AT 98%. NO SOB OR S/S OF RESPIRATORY DISTRESS NOTED. NO S/O OF PAIN SUCH FACIAL GRIMACING NOTED. IV ACCESS IS INTACT, PATENT, AND FLUSHING WELL. ALL NEEDS HAVE BEEN MET. SAFETY PRECAUTIONS MAINTAINED AT ALL TIMES. BED IN LOWEST LOCKED POSITION, HOB ELEVATED, SIDE RAILS UP X2. CALL LIGHT AND TABLE WITHIN REACH. WILL ENDORSE TO ONCOMING NURSE FOR HARPER.
[2021-07-20 06:56] LABS: CALCIUM, SERUM 9.3 mg/dL (8.5-10.1); CREATININE 0.7 mg/dL (0.6-1.3); POTASSIUM 4.8 mmol/L (3.5-5.1)
[2021-07-20 07:57] VITALS: BP 119/63
[2021-07-20] MEDS: ENSURE ENLIVE 237 ML LIQUID (VANILLA) PO SCH ×3 (09:00→16:38)
[2021-07-20] MEDS: ALPRAZOLAM 0.25 MG TABLET GT SCH ×2 (09:16→17:11)
[2021-07-20] MEDS: MULTIVIT W/MINERALS 1 TAB TABLET GT SCH (09:16)
[2021-07-20] MEDS: CARBIDOPA/LEVODOPA 25/100 MG 1 UDTAB GT SCH ×4 (09:16→20:55)
[2021-07-20] MEDS: BENZTROPINE MESYLATE (1 MG) 1 MG TABLET GT SCH ×2 (09:16→16:38)
[2021-07-20] MEDS: ENOXAPARIN SODIUM 40 MG/0.4 ML DISP.SYRIN SQ SCH (09:17)
[2021-07-20] MEDS: VANCOMYCIN 0.75 GM in IV D5W 250 ML IV SCH ×2 (09:35→21:00)
--- NOTE | 2021-07-20 09:35 | NUR ---
MAGGIE TROUGH 21, HELD PER ORDER LEVEL
[2021-07-20 16:00] VITALS: BP 124/84
[2021-07-20] MEDS: DONEPEZIL 5 MG TABLET GT SCH (17:11)
[2021-07-20] MEDS: PAROXETINE HCL 20 MG TABLET GT SCH (17:11)
--- NOTE | 2021-07-20 19:00 | NUR ---
MS RN OPENING NOTE RECEIVED PT AWAKE IN BED. A/OX1. PT ON 3LOXYGEN NC. NO SOB NOTED. NO S/S OF RESPIRATORY DISTRESS. PT IS BR. PT HS NO C/O PAIN AT THIS TIME. IV ACCESS ON R AC#20 , PT HAS GTUBE IN PLACE. IV IS INTACT, PATENT, AND FLUSHING WELL. SAFETY MEASURES MAINTAINED. BED IN LOWEST LOCKED POSITION, HOB ELEVATED, SIDE RAILS UP X2. CALL LIGHT AND TABLE WITHIN REACH. WILL CONTINUE WITH PLAN OF CARE.
[2021-07-20 20:00] VITALS: BP 108/62
[2021-07-20] MEDS: GABAPENTIN 100 MG CAPSULE GT SCH (21:00)
[2021-07-20] MEDS: ATORVASTATIN 40 MG TABLET GT SCH (21:00)
[2021-07-20] MEDS: PRAMIPEXOLE DI-HCL 0.25 MG TABLET GT SCH (21:00)
[2021-07-20] MEDS: DOCUSATE SODIUM LIQ 100 MG/10 ML UDC GT SCH (21:00)
[2021-07-20] MEDS: FINASTERIDE (5 MG) 5 MG TABLET GT SCH (21:00)
[2021-07-20] MEDS: CALCIUM CARBONATE (1250) 500 MG TABLET GT SCH (21:00)
[2021-07-20] MEDS: CLOZAPINE 100 MG TABLET GT SCH (21:01)
[2021-07-20] MEDS: DOXAZOSIN MESYLATE (4 MG) 4 MG TABLET GT SCH (22:00)
[2021-07-21] MEDS: ALBUTEROL HALF STRENGTH 1.25 MG/3 ML VIAL.NEB NEB SCH ×3 (00:57→14:40)
[2021-07-21] MEDS: IPRATROPIUM NEB FS 0.5 MG/2.5 ML AMPUL.NEB NEB SCH ×3 (00:57→14:40)
[2021-07-21] MEDS: ZOSYN IVPB 3.375 G in IV D5W 50ml IV SCH ×3 (04:42→16:16)
--- NOTE | 2021-07-21 06:30 | NUR ---
RN CLOSING NOTE PT IS AWAKE IN BED, STABLE ALL SHIFT. WILL ENDORSE TO DAY AM NURSE
--- NOTE | 2021-07-21 07:13 | NUR ---
RN OPENING NOTE- PT IN BED , EASILY AWAKENED, ORIENTED TO PERSON ONLY. PT ON 3LOXYGEN NC. NO SOB NOTED. NO S/S OF RESPIRATORY DISTRESS. NO PAIN NOTED. IV ACCESS ON R AC#20 , PT HAS GTUBE IN PLACE. IV IS INTACT, PATENT SAFETY MEASURES MAINTAINED. BED IN LOWEST LOCKED POSITION, HOB ELEVATED, SIDE RAILS UP X2. CALL LIGHT AND TABLE WITHIN REACH. WILL CONTINUE WITH PLAN OF CARE.
[2021-07-21 07:14] LABS: CALCIUM, SERUM 9.3 mg/dL (8.5-10.1); CREATININE 0.8 mg/dL (0.6-1.3); POTASSIUM 4.2 mmol/L (3.5-5.1)
[2021-07-21 08:00] VITALS: BP 116/58
[2021-07-21] MEDS: MULTIVIT W/MINERALS 1 TAB TABLET GT SCH (08:24)
[2021-07-21] MEDS: CARBIDOPA/LEVODOPA 25/100 MG 1 UDTAB GT SCH ×2 (08:24→12:55)
[2021-07-21] MEDS: ALPRAZOLAM 0.25 MG TABLET GT SCH (08:25)
[2021-07-21] MEDS: ENOXAPARIN SODIUM 40 MG/0.4 ML DISP.SYRIN SQ SCH (08:25)
[2021-07-21] MEDS: BENZTROPINE MESYLATE (1 MG) 1 MG TABLET GT SCH (08:26)
[2021-07-21] MEDS: ENSURE ENLIVE 237 ML LIQUID (VANILLA) PO SCH ×2 (09:04→12:55)
[2021-07-21] MEDS: VANCOMYCIN 0.75 GM in IV D5W 250 ML IV SCH (10:08)
[2021-07-21 15:49] VITALS: BP 147/76
--- NOTE | 2021-07-21 17:10 | NUR ---
RN NOTE- PT DC VIA AMBULANCE TO [facility]. PT IS ALERT ORIENTED TO PERSON ONLY. CALM MED COMPLIANT. VS STABLE, IV SITE 18 G RT HAND. SKIN INTACT. PT ID [id number] REMOVED. REPORT GIVEN TO FACILITY. REVIEWED ORDERS W AMBULANCE STAFF. ESCORTED OFF UNIT.
== END 2021-07-21 17:20 | DRG 871 ==
LOC: ER 14:54 → TELE1 18:05 → MEDSG1 07-16 08:15 → MED 07-17 04:53
PROVIDERS: ADMIT Internal Medicine Nephrology; ATTEND Internal Medicine Nephrology
DX: A41.9 Sepsis, unspecified organism (principal); J69.0 Pneumonitis due to inhalation of food and vomit; J96.01 Acute respiratory failure with hypoxia; J44.0 Chronic obstructive pulmonary disease with (acute) lower respiratory infection; I10 Essential (primary) hypertension; G20 Parkinson's disease; F02.80 Dementia in other diseases classified elsewhere, unspecified severity, without behavioral disturbance, psychotic disturbance, mood disturbance, and anxiety; E66.01 Morbid (severe) obesity due to excess calories; Z93.1 Gastrostomy status; R13.10 Dysphagia, unspecified; N40.0 Benign prostatic hyperplasia without lower urinary tract symptoms; E11.42 Type 2 diabetes mellitus with diabetic polyneuropathy; Z20.822 Contact with and (suspected) exposure to COVID-19
CPT/HCPCS: 36415; 36600; 70450-TC; 71045-TC; 76604-TC; 80048-TC; 80076-TC; 80202-TC; 82803-TC; 83605-TC; 83880; 84484-TC; 85025-TC; 85730-TC; 87040-TC; 87081-TC; 87086-TC; 94799-TC; C9803; G0378; J1100; J1650; J2543; J3370; J7030; J7050; J7060; Q9967; U0003